=== PATIENT | male | born 1965 | race Hispanic/Latino ===

== ENCOUNTER 2019-08-13 02:43 | Emergency (ER) | payer OTHER ==
[2019-08-13] MEDS ORDERED: SODIUM CHLORIDE 0.9% 1000ML 1,000 ML IV ONE (03:59)
[2019-08-13] MEDS ORDERED: MECLIZINE HCL 25 MG TABLET ONE (04:00)
[2019-08-13] MEDS ORDERED: ONDANSETRON HCL 4 MG/2 ML VIAL ONE ×3 (04:01→09:51)
[2019-08-13 04:04] LABS: BASOPHILS % (AUTO) 0.4 % (0.0-5.0); EOSINOPHILS % (AUTO) 1.3 % (0.0-8.0); HEMATOCRIT 41.9 % (42-54); LYMPHOCYTES % (AUTO) 13.7 % (21.0-51.0); MEAN CORPUSCULAR HEMOGLOBIN 24.3 pg (27.0-33.0); MEAN CORPUSCULAR VOLUME 78.2 fL (79-99); MONOCYTES % (AUTO) 4.2 % (3.0-13.0); NEUTROPHILS % (AUTO) 79.8 % (40.0-77.0); PLATELET COUNT (AUTO) 160 K/uL (130-400); RED BLOOD CELL COUNT(AUTO) 5.36 MIL/uL (4.50-6.20); RED CELL DISTRIBUTION WIDTH 15.6 % (11.0-15.5); WHITE BLOOD COUNT (AUTO) 10.2 K/uL (4.8-10.8)
[2019-08-13 04:08] LABS: CREATININE 1.1 mg/dL (0.5-1.5); POTASSIUM 3.8 mmol/L (3.5-5.1)
[2019-08-13 04:12] LABS: ALBUMIN 3.8 g/dL (3.5-5.0); BILIRUBIN,TOTAL 0.6 mg/dL (0.2-1.0); TOTAL PROTEIN, SERUM 8.1 g/dL (6.0-8.3)
[2019-08-13] MEDS ORDERED: CEFTRIAXONE SODIUM 1 GM ONE (04:30)
[2019-08-13] MEDS ORDERED: LORAZEPAM 2 MG/ML 1 ML VIAL ONE (06:08)
== END 2019-08-13 15:06 | disposition home or self-care (01) ==
LOC: EDH 02:43
DX: H66.91 Otitis media, unspecified, right ear (principal); H81.391 Other peripheral vertigo, right ear; I25.10 Atherosclerotic heart disease of native coronary artery without angina pectoris; I10 Essential (primary) hypertension; K21.9 Gastro-esophageal reflux disease without esophagitis; Z85.038 Personal history of other malignant neoplasm of large intestine
CPT/HCPCS: 36415; 70551; 80053; 82948; 85025; 96361; 96374; 96375; 96376; 99285; J0696; J2060; J2405 ×3; J7030

== ENCOUNTER 2021-10-05 22:38 | Emergency (ER) | payer OTHER ==
[~2021-10-05] VITALS: Ht 182.9 cm; Wt 133.8 kg
[2021-10-05 23:10] LABS: APPEARANCE,URINE Clear (CLEAR); BILIRUBIN,URINE Negative (NEGATIVE); COLOR,URINE Yellow (YELLOW); GLUCOSE, URINE (UA) >=1000 mg/dL (NEGATIVE); KETONES,URINE Trace mg/dL (NEGATIVE); LEUKOCYTE ESTERASE ,URINE Negative (NEGATIVE); NITRATE,URINE Negative (NEGATIVE); OCCULT BLOOD,URINE Moderate (NEGATIVE); PROTEIN,URINE Negative (NEGATIVE)
[2021-10-05 23:29] LABS: BASOPHILS % (AUTO) 0.3 % (0.0-5.0); EOSINOPHILS % (AUTO) 1.4 % (0.0-8.0); HEMATOCRIT 44.8 % (42-54); MEAN CORPUSCULAR HEMOGLOBIN 26.8 pg (27.0-33.0); MEAN CORPUSCULAR HGB CONC 32.4 g/dL (32.0-36.0); MEAN CORPUSCULAR VOLUME 82.7 fL (79-99); MONOCYTES % (AUTO) 6.4 % (3.0-13.0); NEUTROPHILS % (AUTO) 73.6 % (40.0-77.0); PLATELET COUNT (AUTO) 148 K/uL (130-400); RED BLOOD CELL COUNT(AUTO) 5.42 MIL/uL (4.50-6.20); RED CELL DISTRIBUTION WIDTH 13.6 % (11.0-15.5); WHITE BLOOD COUNT (AUTO) 9.6 K/uL (4.8-10.8)
[2021-10-05 23:47] LABS: BACTERIA,URINE None Seen /HPF (None Seen)
[2021-10-05 23:49] LABS: SQUAMOUS EPITHELIAL CELL,UR None Seen /HPF (0-2)
[2021-10-05 23:50] LABS: CREATININE 1.1 mg/dL (0.5-1.5); POTASSIUM 3.7 mmol/L (3.5-5.1)
[2021-10-05 23:55] LABS: ALBUMIN 3.5 g/dL (3.5-5.0); BILIRUBIN,TOTAL 0.7 mg/dL (0.2-1.0); TOTAL PROTEIN, SERUM 7.2 g/dL (6.0-8.3)
[2021-10-06] MEDS ORDERED: LEVOFLOXACIN 500 MG TABLET PO SCH (01:30)
[2021-10-06] MEDS ORDERED: LEVO500T90 PO (02:00)
[2021-10-06 02:15] VITALS: BP 149/86
== END 2021-10-06 02:23 | disposition home or self-care (01) ==
LOC: EDH 22:38
DX: N30.01 Acute cystitis with hematuria (principal); R16.0 Hepatomegaly, not elsewhere classified; M19.90 Unspecified osteoarthritis, unspecified site; Z87.442 Personal history of urinary calculi; Z96.653 Presence of artificial knee joint, bilateral
CPT/HCPCS: 36415; 74176; 80053; 81001; 85025

== ENCOUNTER 2023-09-06 10:05 | Emergency (ER) | payer OTHER, BC ==
[~2023-09-06] VITALS: Ht 182.9 cm; Wt 127.0 kg
[~2023-09-06 10:05] MED LIST: LEVO-70 PO
[2023-09-06 11:11] LABS: BASOPHILS # (AUTO) 0.03 K/uL (0.00-0.20); BASOPHILS % (AUTO) 0.4 % (0.0-5.0); EOSINOPHILS # (AUTO) 0.15 K/uL (0.00-0.70); HEMATOCRIT 47.8 % (42-54); IMMATURE GRANULOCYTE ABSOLUTE 0.03 K/uL (0-1); LYMPHOCYTES # (AUTO) 1.6 K/uL (1.0-4.8); LYMPHOCYTES % (AUTO) 21.5 % (21.0-51.0); MEAN CORPUSCULAR HEMOGLOBIN 28.1 pg (27.0-33.0); MEAN CORPUSCULAR HGB CONC 33.3 g/dL (32.0-36.0); MEAN CORPUSCULAR VOLUME 84.5 fL (79-99); MONOCYTES # (AUTO) 0.5 K/uL (0.1-1.0); MONOCYTES % (AUTO) 6.2 % (3.0-13.0); NEUTROPHILS # (AUTO) 5.2 K/uL (1.8-7.7); NEUTROPHILS % (AUTO) 69.5 % (40.0-77.0); PLATELET COUNT (AUTO) 143 K/uL (130-400); RED BLOOD CELL COUNT(AUTO) 5.66 MIL/uL (4.50-6.20); RED CELL DISTRIBUTION WIDTH 13.3 % (11.0-15.5); WHITE BLOOD COUNT (AUTO) 7.4 K/uL (4.8-10.8)
[2023-09-06 11:12] LABS: CREATININE 0.9 mg/dL (0.5-1.3); POTASSIUM 3.8 mmol/L (3.5-5.1)
[2023-09-06 11:17] LABS: ALBUMIN 3.7 g/dL (3.5-5.0); BILIRUBIN,TOTAL 0.8 mg/dL (0.2-1.0); TOTAL PROTEIN, SERUM 7.2 g/dL (6.0-8.3)
[2023-09-06 11:35] LABS: APPEARANCE,URINE CLEAR (CLEAR); BILIRUBIN,URINE NEGATIVE (NEGATIVE); COLOR,URINE YELLOW (YELLOW); GLUCOSE, URINE (UA) NEGATIVE (NEGATIVE); KETONES,URINE NEGATIVE (NEGATIVE); LEUKOCYTE ESTERASE ,URINE NEGATIVE Leu/uL (NEGATIVE); NITRATE,URINE NEGATIVE (NEGATIVE); OCCULT BLOOD,URINE NEGATIVE (NEGATIVE); PROTEIN,URINE 10 mg/dL (NEGATIVE); UROBILINOGEN,URINE 0.2 mg/dL (0.2-1.0)
[2023-09-06 11:36] LABS: B-TYPE NATRIURETIC PEPTIDE 7 pg/mL (0-100)
[2023-09-06 11:39] LABS: ADD UA MICROSCOPIC YES
[2023-09-06 11:41] LABS: MUCUS,URINE RARE LPF (None Seen); SQUAMOUS EPITHELIAL CELL,UR RARE /HPF (0-2)
[2023-09-06 13:08] VITALS: BP 131/86; PULSE 72; RESP 18; O2SAT 99
== END 2023-09-06 13:48 | disposition home or self-care (01) ==
LOC: EDH 10:05
DX: R53.83 Other fatigue (principal); R06.02 Shortness of breath; I10 Essential (primary) hypertension; E11.9 Type 2 diabetes mellitus without complications; E78.00 Pure hypercholesterolemia, unspecified; M19.90 Unspecified osteoarthritis, unspecified site; Z85.038 Personal history of other malignant neoplasm of large intestine; Z87.442 Personal history of urinary calculi; Z96.653 Presence of artificial knee joint, bilateral; Z98.890 Other specified postprocedural states
CPT/HCPCS: 36415; 71045; 80053; 81001; 83880; 84443; 84484; 85025; 93005

== ENCOUNTER 2025-03-06 13:56 | Emergency (ER) | payer OTHER, BC ==
[~2025-03-06] VITALS: Ht 182.9 cm; Wt 131.1 kg
--- NOTE | 2025-03-06 14:34 | ERN ---
General Chief Complaint: Ankle Problem Stated Complaint: LT ANKLE PAIN Time Seen by MD: 14:18 History of Present Illness Initial Comments Presented with a past medical history of colon cancer stage IV treated with bowel resection and chemotherapy, hypertension, diabetes mellitus, bilateral knee replacement and bilateral flatfoot with surgery on the left ankle presented with pain in the left ankle joint making difficult to walk for 2 months. As per patient the symptoms gradually progressed and makes his left foot unstable while walking. Allergies: Coded Allergies: No Known Drug Allergies (Unverified Allergy, Unknown, 08/13/19) Home Meds Active Scripts Levofloxacin (Levofloxacin) 500 Mg Tablet, 1 TAB PO DAILY for 7 Days, #7 TAB 0 Refills Prov:LATANYA KUO MD 10/06/21 Past Medical History Past Medical History: Arthritis, Cancer, Diabetes-Type II, High Cholesterol, Hypertension, Kidney Stone Medical History Other: HX OF STG 5 COLON CA Past Surgical History: Other (Bilateral knee replacement) Surgical History Other: BILAT KNEE REPLACEMENT, PINS TO LT FOOT,COLON CANCER SX Social History Social History: Negative, Lives with family Constitutional: (-) chills, (-) diaphoresis, (-) fever, (-) malaise, (-) weakness, (-) other documentation EENTM: (-) eye pain, (-) blurred vision, (-) tearing, (-) double vision, (-) ear pain, (-) ear discharge, (-) nose pain, (-) nose congestion, (-) throat pain, (-) Throat swelling, (-) mouth pain, (-) tooth pain, (-) mouth swelling, (-) other documentation Respiratory: (-) cough, (-) orthopnea, (-) short of breath, (-) stridor, (-) wheezing, (-) other documentation Cardiovascular: (-) chest pain, (-) edema, (-) palpitations, (-) syncope, (-) dyspnea on exertion, (-) other documentation Gastrointestinal/Abdominal: (-) nausea, (-) vomiting, (-) diarrhea, (-) abdominal pain, (-) abdominal distention, (-) constipation, (-) rectal bleeding, (-) dark stool/melena, (-) other documentation Genitourinary: (-) penile discharge, (-) dysuria, (-) frequency, (-) hematuria, (-) pain, (-) other documentation Musculoskeletal: (+) joint pain (Left ankle ); (-) Neck pain, (-) back pain, (-) Flank Pain, (-) joint swelling, (-) muscle pain, (-) muscle stiffness, (-) gout, (-) other documentation Skin: (-) laceration, (-) contusion, (-) abrasion, (-) abscess, (-) rash, (-) change in color, (-) change in hair, (-) change in nails, (-) diaphoresis, (-) dryness, (-) other documentation Neuro: (-) altered mental status, (-) headache, (-) syncope, (-) paralysis, (-) numbness, (-) seizure, (-) pre-existing deficit, (-) tremors, (-) weakness, (-) dizziness, (-) slurred speech, (-) vertigo, (-) other documentation Psych: (-) depression, (-) suicidal ideation, (-) anxiety, (-) emotional problems, (-) auditory hallucinations, (-) visual hallucinations Hematologic/Lymphatic: (-) anemia, (-) blood clots, (-) easy bleeding, (-) easy bruising, (-) swollen glands, (-) other documentation Physical Exam Physical Exam Dictation General: awake, alert, NAD Head/Face: Normocephalic, atraumatic Eyes: PERRL, EOMI, vision at baseline ENT: oral cavity clear, TMs clear, no signs of infection Neck: Trachea midline, supple, no nuchal rigidity Cardiovascular: RRR, normal S1/S2, No MRGs, no JVD Respiratory: CTAB, no respiratory distress, No rales or wheezes Abdomen: Soft, non-tender, non-distended, normal bowel sound Skin: Warm, dry, normal turgor, no rash MS/Extremity: Pulses equal, no cyanosis, neurovascular intact, FROM Neuro: COAx4, GCS 15, strength 5/5, CN 2-12 intact, normal cerebellar exam, normal gait, Psych: Normal behavior, mood, and affect normal Extremities-surgical scar on the left foot, tenderness on the left ankle joint General Appearance: (+) obese; (-) no apparent distress, (-) apparent distress, (-) mild distress, (-) moderate distress, (-) severe distress, (-) thin, (-) combative, (-) cachetic, (-) anxious, (-) other documentation Orientation: (+) alert, (+) oriented x 3 Results Laboratory and Microbiology Labs Reviewed?: Yes EKG/XRAY/US/CT/MRI X-RAY Comment Ankle x-ray-NAD MDM MDM: Differential diagnosis: Ankle sprain, ankle fracture, Rationale: Tests considered and ordered secondary to shared decision making include: Previous outside records reviewed: Old ER visits. Risk of complication and/or morbidity or mortality of patient management: None Medications-Per medication reconciliation Need for hospitalization: Patient does not meet criteria for hospitalization. Need for emergency major/minor surgery: No Patient is a 59-year-old male coming in complaining of ankle pain. X-ray did not disclose acute findings. Patient already has a an ankle immobilizer ankle support. Patient will be discharged in stable condition with a diagnosis of ankle sprain acute on chronic ankle pain. I did advised him appropriate follow up with the PCP and client engagement specialist for ongoing evaluation and management ED Course Orders Procedure Category Date Status Time Ankle Comp 3vws Lt RAD 03/06/25 Taken 14:19 Vital Signs Date Time Temp Pulse Resp B/P (MAP) Pulse Ox O2 Delivery O2 Flow Rate FiO2 03/06/25 14:15 97.7 82 20 129/70 99 Room Air* 0 21 03/06/25 13:58 97.7 82 20 129/70 99 Room Air 0 DX & DISP Disposition: Discharge Departure Impression: Primary Impression: Ankle sprain Additional Impression: Osteoarthritis of left ankle Condition: Stable Additional Instructions: FOLLOW-UP WITH PRIMARY CARE PROVIDER IN 1 TO 2 DAYS. TAKE MEDICATIONS DIRECTED HERE IN THE EMERGENCY ROOM. OKAY TO CONTINUE HOME MEDICATIONS UNLESS OTHERWISE DISCUSSED DURING YOUR VISIT IN THE EMERGENCY ROOM TODAY. RETURN TO YOUR NEAREST EMERGENCY ROOM IF SYMPTOMS WORSEN OR IF THERE IS NO IMPROVEMENT. CALL 911 IF YOU NEED IMMEDIATE ASSISTANCE. TAKE TYLENOL ASUG-YEX-TENCPRZ NEEDED AND IF NO CONTRAINDICATIONS ARE PRESENT. INCREASE ORAL HYDRATION. A WOUND CULTURE OR URINE CULTURE WAS ORDERED HERE IN THE EMERGENCY ROOM DEPARTMENT PLEASE FOLLOW-UP WITH PRIMARY CARE PROVIDER AND ADVISE THEM TO GET REPORTS FROM OUR FACILITY. IF YOU HAD ANY ARPIT WRAP/SPLINTS THAT WERE APPLIED HERE, PLEASE DO NOT REMOVE THEM UNTIL YOU SEE YOUR PRIMARY CARE OR SPECIALTY. Referrals: Referrals: SELF,REFERRAL (PCP) KARIE DE LA ROSA MD, LUIS A MD Time of Disposition: 15:48 MICHAEL MEI MD Mar 06, 2025 14:34 KASSANDRA MCINTYRE MD Mar 06, 2025 15:49
--- NOTE | 2025-03-06 15:52 | HMCIMG ---
EXAM: CR right ankle, 3 View. CLINICAL HISTORY: Left ankle pain COMPARISON: None provided. FINDINGS: BONES: No acute fracture or aggressive appearing osseous lesion. Surgical hardware is seen across the calcaneus and midfoot area. JOINTS: The joint spaces appear within normal limits. No dislocation. No radiographic evidence of a joint effusion. SOFT TISSUES: The soft tissues are unremarkable. IMPRESSION: No acute osseous abnormality. /[place]
[2025-03-06 15:54] VITALS: BP 152/78; PULSE 80; RESP 12; TEMP 97.9; O2SAT 97
[2025-03-06] MEDS: NAPROXEN 500 MG TABLET PO ONE (15:59)
== END 2025-03-06 16:08 | disposition home or self-care (01) ==
LOC: EDH 13:56
DX: S93.402A Sprain of unspecified ligament of left ankle, initial encounter (principal); M19.072 Primary osteoarthritis, left ankle and foot; E11.9 Type 2 diabetes mellitus without complications; E78.00 Pure hypercholesterolemia, unspecified; I10 Essential (primary) hypertension; Z96.653 Presence of artificial knee joint, bilateral; Z87.442 Personal history of urinary calculi; Z85.038 Personal history of other malignant neoplasm of large intestine; X58.XXXA Exposure to other specified factors, initial encounter; Y93.89 Activity, other specified; Y92.89 Other specified places as the place of occurrence of the external cause; Y99.8 Other external cause status
CPT/HCPCS: 73610; 99283

== ENCOUNTER 2025-03-12 19:16 | Emergency (ER) | payer OTHER, BC ==
[~2025-03-12] VITALS: Ht 182.9 cm; Wt 130.2 kg
--- NOTE | 2025-03-12 19:46 | ERN ---
ED Note History of Present Illness Stated Complaint: C/O DIZZINESS WITH HEADACHE ONSET THIS AM Chief Complaint: Dizzy/Light Headed Time Seen by MD: 19:38 Dictation: This is a 59-year-old male with multiple medical problems presented to the emergency room with complaints of dizziness nausea and a headache. He denied any increased lacrimation or nasal discharge. He also denied any aura prior to his headache. His dizziness is worse when he moves the head from [id number]. No blurred vision diplopia, facial asymmetry motor weakness or seizure activity. No bladder or bowel incontinence. No vomitings or diarrhea Temperature 97.2 pulse 89 respirations 20 blood pressure 164/94 with a pulse oximetry of 94% on room air Chronic medical problems include diabetes mellitus, hypertension, history of colon cancer in remission stand obstructive sleep apnea syndrome and patient uses CPAP machine Allergies: Coded Allergies: No Known Drug Allergies (Unverified Allergy, Unknown, 08/13/19) Home Meds Active Scripts Levofloxacin (Levofloxacin) 500 Mg Tablet, 1 TAB PO DAILY for 7 Days, #7 TAB 0 Refills Prov:LATANYA KUO MD 10/06/21 Past Medical History Past Medical History: Diabetes-Type II, Hypertension, Other Additional Past Medical Hx: COLON CA (IN REMISSION); SLEEP APNEA, PT USES MACHINE Surgical History: Other Surgical History Other: KNEE SX Social History: Negative, Lives with family RN Note Reviewed/Agreed w/PFSH: Yes Review of System Dictation Constitutional: Negative for fever,chills, and weight loss Eyes: Negative for injury, pain,redness, and discharge ENT: Negative for injury,pain or swelling Cardiovascular: Negative for chest pain, palpitations, and edema Respiratory: Negative for shortness of breath, cough, and wheezing, Abdomen/GI: Negative for abdominal pain, nausea, vomiting, diarrhea, and constipation Back: Negative for injury and pain : Negative for injury, bleeding and discharge MS/Extremity: Negative for injury and deformity Skin: Negative for rash, and discoloration Neuro: Negative for headache, weakness, numbness, tingling, and seizure Psych: Negative for suicide ideation, homicidal ideation, and hallucinations Initial Vital Sign VS Vital Signs Date Time Temp Pulse Resp B/P (MAP) Pulse Ox O2 Delivery O2 Flow Rate FiO2 03/12/25 19:18 97.2 89 20 164/94 94 Room Air Physical Exam Dictation General: awake, alert, NAD Head/Face: Normocephalic, atraumatic Eyes: PERRL, EOMI, vision at baseline ENT: oral cavity clear, TMs clear, no signs of infection Neck: Trachea midline, supple, no nuchal rigidity Cardiovascular: RRR, normal S1/S2, No MRGs, no JVD Respiratory: CTAB, no respiratory distress, No rales or wheezes Abdomen: Soft, non-tender, non-distended, normal bowel sounds, no guarding or rebound. Skin: Warm, dry, normal turgor, no rash MS/Extremity: Pulses equal, no cyanosis, neurovascular intact, FROM Neuro: COAx4, GCS 15, strength 5/5, CN 2-12 intact, normal cerebellar exam, normal gait, Psych: Normal behavior, mood, and affect normal Extremities-trace edema without any palpable cords, Homans sign is negative Results (Laboratory/Radiology) Laboratory/Radiology Laboratory Tests Test 03/12/25 20:18 03/12/25 20:29 White Blood Count 7.3 K/uL (4.8-10.8) Red Blood Count 5.42 MIL/uL (4.50-6.20) Hemoglobin 15.2 g/dL (14.0-18.0) Hematocrit 44.6 % (42-54) Mean Corpuscular Volume 82.3 fL (79-99) Mean Corpuscular Hemoglobin 28.0 pg (27.0-33.0) Mean Corpuscular Hemoglobin Concent 34.1 g/dL (32.0-36.0) Red Cell Distribution Width 13.9 % (11.0-15.5) Platelet Count 137 K/uL (130-400) Mean Platelet Volume 11.0 fL (7.5-10.5) H Immature Granulocyte % (Auto) 0.3 % (0-1) Neutrophils (%) (Auto) 72.7 % (40.0-77.0) Lymphocytes (%) (Auto) 18.3 % (21.0-51.0) L Monocytes (%) (Auto) 6.1 % (3.0-13.0) Eosinophils (%) (Auto) 2.2 % (0.0-8.0) Basophils (%) (Auto) 0.4 % (0.0-5.0) Neutrophils # (Auto) 5.3 K/uL (1.8-7.7) Lymphocytes # (Auto) 1.3 K/uL (1.0-4.8) Monocytes # (Auto) 0.5 K/uL (0.1-1.0) Eosinophils # (Auto) 0.16 K/uL (0.00-0.70) Basophils # (Auto) 0.03 K/uL (0.00-0.20) Absolute Immature Granulocyte (auto 0.02 K/uL (0-1) Nucleated Red Blood Cells 0.0 % (0.0-0.19) Sodium Level 140 mmol/L (136-145) Potassium Level 3.9 mmol/L (3.5-5.1) Chloride Level 103 mmol/L (101-111) Carbon Dioxide Level 26 mmol/L (21-32) Blood Urea Nitrogen 14 mg/dL (7-18) Creatinine 0.9 mg/dL (0.5-1.3) Glomerular Filtration Rate Calc 98 mL/min (>90) Random Glucose 183 mg/dL (70-105) H Whole Blood Ketones Quantitative 0.1 mmol/L (0.0-0.6) Total Calcium 8.7 mg/dL (8.5-10.1) Total Creatine Kinase 106 U/L (21-232) Troponin I High Sensitivity < 4.0 ng/L (4-75) L Urine Color YELLOW (YELLOW) Urine Appearance CLEAR (CLEAR) Urine pH 5.5 (5.0-8.0) Urine Specific [place] 1.029 (1.001-1.031) Urine Protein 10 mg/dL (NEGATIVE) H Urine Glucose (UA) NEGATIVE mg/dL (NEGATIVE) Urine Ketones NEGATIVE mg/dL (NEGATIVE) Urine Occult Blood NEGATIVE (NEGATIVE) Urine Nitrate NEGATIVE (NEGATIVE) Urine Bilirubin NEGATIVE mg/dL (NEGATIVE) Urine Urobilinogen 3 mg/dL (0.2-1.0) H Urine Leukocyte Esterase NEGATIVE Eileen/uL Urine RBC 0-1 /HPF (0-1) Urine WBC 0-1 /HPF (0-1) Urine Squamous Epithelial Cells RARE /HPF (0-2) Urine Bacteria None /HPF (None Seen) Labs Reviewed?: Yes EKG Comment: Twelve lead EKG done on 03/12/2025 at 7:55 p.m. showed a heart rate of 81, WA interval 163, QRS duration 83, QT/QTC 369/429 Impression normal sinus rhythm with nonspecific ST-T changes small Q's in the inferior leads 3 and AVF. Overall somewhat of a low voltage secondary to body habitus. EKG rhythm strip shows a low voltage normal sinus rhythm with no acute STT wave changes. Interpreted by ER MD Dr. Thornton X-RAY Comment: REASON: SYNCOPE ORDERING PHYSICIAN: KIMBERLY THORNTON MD PROCEDURE: CXR1VW - CHEST 1VW EXAM: CR Chest, 1 View. CLINICAL HISTORY: SYNCOPE COMPARISON: None provided. FINDINGS: LUNGS: The lungs show no infiltrate or other acute finding. PLEURAL SPACES: No pleural effusion or pneumothorax. MEDIASTINUM: Cardiac size and mediastinal contours within normal limits. BONES: No aggressive appearing osseous lesion seen. IMPRESSION: No acute cardiopulmonary pathology is evident. /[place] DICTATED BY: KENDALL BERGERON MD DATE: 03/12/252129 ELECTRONICALLY SIGNED BY: KENDALL BERGERON MD DATE: 03/12/252129 CT Scan Comment: REASON: severe headache bitemporal, dizziness ORDERING PHYSICIAN: KIMBERLY THORNTON MD PROCEDURE: HEAD WO - CT HEAD/BRAIN W/O CONTRAST EXAM: CT Head Without IV contrast. CLINICAL HISTORY: severe headache bitemporal, dizziness TECHNIQUE: Axial computed tomography images of the head/brain without intravenous contrast. COMPARISON: None provided. FINDINGS: BRAIN: No evidence of acute hemorrhage. No mass lesion. No CT evidence for acute territorial infarct. No midline shift or extra-axial collections. Cavum septum pellucidum. VENTRICLES: No hydrocephalus. ORBITS: The orbits are unremarkable. SINUSES AND MASTOIDS: The paranasal sinuses and mastoid air cells are clear. BONES: No fracture. SOFT TISSUES: Unremarkable. IMPRESSION: No acute intracranial abnormality. /[place] DICTATED BY: JOSE SUMNER MD DATE: 03/12/252300 ELECTRONICALLY SIGNED BY: JOSE SUMNER MD DATE: 03/12/252300 ED Course ED Course Orders Procedure Category Date Status Time Cardiac Panel LAB 03/12/25 Complete 19:40 Cbc With Differential LAB 03/12/25 Complete 19:40 Basic Metabolic Panel LAB 03/12/25 Complete 19:40 Ketone Blood LAB 03/12/25 Complete Quantitative 19:40 Urinalysis Profile LAB 03/12/25 Complete 19:40 Chest 1vw RAD 03/12/25 Resulted 19:40 12 Lead Ekg Tracing- EKG 03/12/25 Logged Technical 19:40 0.9%Nacl 1000ml (Ns PHA 03/12/25 Complete 1000ml) 20:00 Ketorolac PHA 03/12/25 Complete Tromethamine 30mg/Ml 20:00 Ondansetron 4mg Inj PHA 03/12/25 Complete (Zofran 4mg Inj) 20:00 Ct Head/Brain W/O CT 03/12/25 Resulted Contrast 20:48 Current Medications Medications (Trade) Dose Ordered Sig/Josefa Route PRN Reason Start Time Stop Time Status Last Admin Dose Admin Ketorolac Tromethamine (toRADol) 30 mg ONCE ONCE IV 03/12/25 20:00 03/12/25 20:01 DC 03/12/25 20:25 Ondansetron HCl (zoFRAN 4MG INJ) 4 mg ONCE ONCE IVP 03/12/25 20:00 03/12/25 20:01 DC 03/12/25 20:41 Sodium Chloride 1,000 ml @ 0 mls/hr ONCE ONCE IV 03/12/25 20:00 03/12/25 20:01 DC 03/12/25 20:25 Vital Signs Date Time Temp Pulse Resp B/P (MAP) Pulse Ox O2 Delivery O2 Flow Rate FiO2 03/12/25 19:18 97.2 89 20 164/94 94 Room Air We will perform diagnostic labs, advanced imaging and administer medications according to the patient's complaint. Once the results are available, will review and personally interpreted the labs to rule out any acute life- threatening emergency the trach require immediate intervention and treatment. I will then re-evaluate the patient after treatment and diagnostic exams have re turn to determine whether the patient requires any further testing, can safely be discharged home or need further admission to hospital for additional treatment and evaluation. Medical Decision Making MDM Differential diagnosis: Tension headache, migraine headache, cluster headache, vascular headache, pseudotumor cerebri, arthritis of the TMJ This is a 59-year-old male with multiple medical problems presented to the emergency room with complaints of dizziness nausea and a headache. He denied any increased lacrimation or nasal discharge. He also denied any aura prior to his headache. His dizziness is worse when he moves the head from [id number]. No blurred vision diplopia, facial asymmetry motor weakness or seizure activity. No bladder or bowel incontinence. No vomitings or diarrhea Temperature 97.2 pulse 89 respirations 20 blood pressure 164/94 with a pulse oximetry of 94% on room air Chronic medical problems include diabetes mellitus, hypertension, history of col on cancer in remission stand obstructive sleep apnea syndrome and patient uses CPAP machine Rationale: Tests considered and ordered secondary to shared decision making include: Previous outside records reviewed: Old ER visits. Risk of complication and/or morbidity or mortality of patient management: None Medications-Per medication reconciliation Need for hospitalization: Patient does not meet criteria for hospitalization. Need for emergency major/minor surgery: No There are no social concerns with this patient. Prescription drug management Prescriptions will include symptomatic care Patient's prior external medical records from other ER visits were reviewed by me as indicated. Prior testing and results from previous visits were reviewed. Prior tests were taken into account with medical decision making and resource utilization, independent historian/historians were used to obtain complete medical history. I independently interpreted the test that were performed, results were reviewed by me and considered findings on radiology if ordered. Medical management and examination interpretation discussions were had by me with other qualified healthcare professionals as indicated for the patient's care. DX & DISP Disposition: Discharge Departure Impression: Primary Impression: Tension headache Additional Impressions: Shift work sleep disorder, Obstructive sleep apnea syndrome in adult, Morbid obesity Condition: Stable Scripts Meclizine HCl (Meclizine HCl) 25 Mg Tablet 25 MG PO TID for vertigo for 5 Days, #15 TAB 0 Refills Prov: KIMBERLY THORNTON MD 03/12/25 Prednisone (Prednisone) 20 Mg Tablet 1 TAB PO AD for 6 Days, #14 TAB 0 Refills TAKE 1 TAB BY MOUTH THREE TIMES PER DAY X3 DAYS, THEN TAKE 1 TAB BY MOUTH TWICE A DAY X2 DAYS, THEN TAKE 1 TAB BY MOUTH ONCE A DAY X1 DAY. Prov: KIMBERLY THORNTON MD 03/12/25 Additional Instructions: Patient and the caregiver have been informed of all the diagnostic tests and the imaging conducted during the today's visit to the emergency room and has verbalized understanding of the results I have personally reviewed and inter preted all diagnostic exams performed here in the ER today as well as the vital signs documented by the nursing staff. The patient is now being discharged to home and should follow up with the primary care physician or the specialist as directed by the ER staff. Follow-up with primary care provider in 1 to 2 days. Take medications as directed here in the emergency room. Okay to continue home medications unless otherwise discussed during your visit in the emergency room today. Return to your nearest emergency room if symptoms worsen or if there is no improvement. Call 911 if you need immediate assistance. Take Tylenol or Motrin [id number] as needed and if no contraindications are present. Increase oral hydration. A wound culture or urine culture was ordered here in the emergency room department please follow-up with primary care provider and advise them to get repeat ports from our facility. If you had any Travis wrap/splints that were applied here, please do not remove them until you see your primary care or specialty. I have instructed him to discuss with his sleep specialist to address his shift work disorder and yang an illustration 4 times to eat and maintaining sleep hygiene. He may benefit from a neuro stimulant like Provigil Nuvigil or Wakix Referrals: SELF,REFERRAL (PCP) KIMBERLY THORNTON MD Mar 12, 2025 19:46
[2025-03-12] MEDS: 0.9%NACL 1000ML 1,000 ML IV ONE (20:25)
--- NOTE | 2025-03-12 20:30 | HMCIMG ---
EXAM: CR Chest, 1 View. CLINICAL HISTORY: SYNCOPE COMPARISON: None provided. FINDINGS: LUNGS: The lungs show no infiltrate or other acute finding. PLEURAL SPACES: No pleural effusion or pneumothorax. MEDIASTINUM: Cardiac size and mediastinal contours within normal limits. BONES: No aggressive appearing osseous lesion seen. IMPRESSION: No acute cardiopulmonary pathology is evident. /[place]
[2025-03-12 20:32] LABS: IMMATURE GRANULOCYTE ABSOLUTE 0.02 K/uL (0-1); NUCLEATED RED BLOOD CELLS 0.0 % (0.0-0.19); PLATELET COUNT (AUTO) 137 K/uL (130-400); RED BLOOD CELL COUNT(AUTO) 5.42 MIL/uL (4.50-6.20); RED CELL DISTRIBUTION WIDTH 13.9 % (11.0-15.5); WHITE BLOOD COUNT (AUTO) 7.3 K/uL (4.8-10.8)
[2025-03-12 20:42] LABS: CREATININE 0.9 mg/dL (0.5-1.3); GLOMERULAR FILTR. RATE CALC 98 mL/min (>90); GLUCOSE,RANDOM 183 mg/dL (70-105); SODIUM SERUM 140 mmol/L (136-145); UREA NITROGEN, BLOOD 14 mg/dL (7-18)
[2025-03-12 20:50] LABS: CREATINE KINASE, TOTAL 106 U/L (21-232)
[2025-03-12 20:53] LABS: APPEARANCE,URINE CLEAR (CLEAR); GLUCOSE, URINE (UA) NEGATIVE (NEGATIVE); LEUKOCYTE ESTERASE ,URINE NEGATIVE Leu/uL (NEGATIVE); NITRATE,URINE NEGATIVE (NEGATIVE); OCCULT BLOOD,URINE NEGATIVE (NEGATIVE)
[2025-03-12 20:56] LABS: ADD UA MICROSCOPIC YES
[2025-03-12 20:58] LABS: SQUAMOUS EPITHELIAL CELL,UR RARE /HPF (0-2)
--- NOTE | 2025-03-12 22:01 | HMCIMG ---
EXAM: CT Head Without IV contrast. CLINICAL HISTORY: severe headache bitemporal, dizziness TECHNIQUE: Axial computed tomography images of the head/brain without intravenous contrast. COMPARISON: None provided. FINDINGS: BRAIN: No evidence of acute hemorrhage. No mass lesion. No CT evidence for acute territorial infarct. No midline shift or extra-axial collections. Cavum septum pellucidum. VENTRICLES: No hydrocephalus. ORBITS: The orbits are unremarkable. SINUSES AND MASTOIDS: The paranasal sinuses and mastoid air cells are clear. BONES: No fracture. SOFT TISSUES: Unremarkable. IMPRESSION: No acute intracranial abnormality. /[place]
[2025-03-12] MEDS ORDERED: PRED20TA3 PO (22:47)
[2025-03-12] MEDS ORDERED: MECL-302 PO (22:47)
[2025-03-12 23:20] VITALS: BP 151/82; PULSE 82; RESP 17; TEMP 97.5; O2SAT 99
--- NOTE | 2025-03-13 02:16 | EKG ---
[facility] Test Date: 2025-03-12 Test Time: 19:55:26 Pat Name: ROME FRAIRE Department: EDH Room: Gender: M Tarper: [id number] : 1965 Requested By: KIMBERLY DUNCAN Order Number: [id number] Reading MD: Flor Mack Measurements Intervals [place] Rate: 81 P: 43 [place]: 163 QRS: -13 QRSD: 83 T: 4 QT: 369 QTc: 429 Interpretive Statements Sinus rhythm Inferior infarct, old Compared to ECG 09/06/2023 10:55:22 No significant changes Electronically Signed On 03-14-2025 10:23:46 CDT by Flor Mack Please click the below link to view image of tracing.
== END 2025-03-12 23:26 | disposition home or self-care (01) ==
LOC: EDH 19:16
DX: G44.209 Tension-type headache, unspecified, not intractable (principal); G47.33 Obstructive sleep apnea (adult) (pediatric); E66.01 Morbid (severe) obesity due to excess calories; E11.9 Type 2 diabetes mellitus without complications; I10 Essential (primary) hypertension; Z85.038 Personal history of other malignant neoplasm of large intestine
CPT/HCPCS: 99284; 96374; 70450; 71045; 96361; 96375; 82550; 84484; 80048; 85025; 82010; 81001; 36415; 93005; J1885; J7030; J2405